=== PATIENT | female | born 1970 | race Caucasian/White ===

== ENCOUNTER → 2023-06-15 11:02 | Outpatient (REF) | payer BC, SELFPAY | LOC: WDC 11:02 | PROVIDERS: ATTENDING PHYSICIAN Obstetrics & Gynecology | DX: Z12.31 Encounter for screening mammogram for malignant neoplasm of breast (principal) | CPT/HCPCS: 77063; 77067 ==

== ENCOUNTER → 2023-07-23 17:58 | Outpatient (REF) | payer BC, SELFPAY | LOC: MRI 17:58 | PROVIDERS: ATTENDING PHYSICIAN Specialist; FAMILY PHYSICIAN Physician Assistant | DX: D35.2 Benign neoplasm of pituitary gland (principal) | CPT/HCPCS: 70553; A9575 ==

== ENCOUNTER → 2024-01-27 07:49 | Outpatient (REF) | payer BC, SELFPAY | LOC: MRI 3T 07:49 | PROVIDERS: ATTENDING PHYSICIAN Family Medicine | DX: M54.12 Radiculopathy, cervical region (principal); M48.02 Spinal stenosis, cervical region; M50.30 Other cervical disc degeneration, unspecified cervical region | CPT/HCPCS: 72141 ==

== ENCOUNTER → 2024-01-28 13:52 | Outpatient (REF) | payer BC, SELFPAY | LOC: RAD 13:52 | PROVIDERS: ATTENDING PHYSICIAN Nurse Practitioner Adult Health | DX: R22.1 Localized swelling, mass and lump, neck (principal); K11.21 Acute sialoadenitis | CPT/HCPCS: 76536 ==

== ENCOUNTER → 2024-06-21 08:55 | Outpatient (REF) | payer BC, SELFPAY | LOC: WDC 08:55 | PROVIDERS: ATTENDING PHYSICIAN Obstetrics & Gynecology; FAMILY PHYSICIAN Nurse Practitioner Family | DX: Z12.31 Encounter for screening mammogram for malignant neoplasm of breast (principal) | CPT/HCPCS: 77063; 77067 ==

== ENCOUNTER 2024-10-31 06:28 | Emergency (ER) | payer BC, SELFPAY ==
[2024-10-31 06:29] VITALS: BP 145/92
--- NOTE | 2024-10-31 08:46 | ED.GENMED ---
History of Present Illness
General
Chief Complaint: Headache
Source: patient
Exam Limitations: none
Time Seen by Provider: 10/31/24 08:28
Nursing documentation reviewed up to this point in time: agreed with
History of Present Illness
History of Present Illness:
pt is a 54 y/o F
h/o migraines
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
h/o pituitary adenoma
here with headache x 4 days
gradual onset
waxing and waning
mostly top of head sometimes into neck on both sides
changing position makes it worse
no recent ilnless, fever, chills, vomiting, ocnfusion, weakness, numbness
no trauma
tried propranolol which is her preventative
then has been using rizatriptan and diclofenac
nothing tkaen today
says pain is 10/10
didn't sleep last nigth
no photophobia;
Phy Exam
Physical Exam
Physical Exam:
GENERAL: Alert , in no apparent distress, very well appearing
HEAD: NCAT
EYE: pupils equal and reactive, no nystagmus, no photophobia, sitting in bright light comfortably
NECK: Supple,full rom, nontender
ENT: o/p clr, mmm.
CARDIAC: Regular rate and rhythm . no edema
LUNGS: Clear breath sounds bilaterally, no acute respiratory distress, no wheezes/rales/rhonchi
ABDOMEN: Soft, without focal tenderness, no r/g, no cvat
NEUROLOGICAL: Alert and orientedx 4, cn intact, no facial asymmetry, 5/5 strength in UE/LE, sensation intact, romberg neg, ambulates without assistance, neg pronator drift
SKIN: Warm and dry, skin intact.
MUSCULOSKELETAL: No edema, well perfused.
PSYCH: Normal and appropriate interaction.
Course
Orders/Labs/Results
Orders:
Orders
10/31/24 08:38
CT Head W/o Iv Contrast Urgent
Comment:
Reason For Exam: headache x 4 days
0.9% Sodium Chloride 1000 ml [Nss] 1,500 ml IV BOLUS
Diphenhydramine [Benadryl] 50 mg IV NOW STA
Ketorolac [Toradol] 30 mg IV NOW STA
Metoclopramide [Reglan] 10 mg IV NOW STA
10/31/24 09:17
Complete Blood Count/With Diff Urgent
Comprehensive Metabolic Panel Urgent
Abnormal Lab Results
10/31/24
09:17
Absolute Lymphs (auto) 0.9 L 10^3/uL
(1.2-3.4)
Immature Gran % 0.6 H %
(0-0.5)
Neutrophils % 78.7 H %
(42.2-75.2)
Lymphocytes % 12.2 L %
(20.5-51.1)
Sodium 133 L mmol/L
(135-145)
Carbon Dioxide 20 L mmol/L
(22-30)
Glucose 111 H mg/dl
(70-99)
Total Bilirubin 1.5 H mg/dl
(0.2-1.3)
AST 43 H U/L
(14-36)
ALT 45 H U/L
(0-35)
10/31/24 09:17
10/31/24 09:17
Vital Signs
Initial and Last Documented VS:
Initial Vital Signs
Temp Pulse Resp BP Pulse Ox
36.3 C 76 20 145/92 98
10/31/24 06:29 10/31/24 06:29 10/31/24 06:29 10/31/24 06:29 10/31/24 06:29
Last Documented Vital Signs
Temp Pulse Resp BP Pulse Ox
36.3 C 76 20 145/92 98
10/31/24 06:29 10/31/24 06:29 10/31/24 06:29 10/31/24 06:29 10/31/24 08:49
MDM/Problems Addressed
Differential Diagnosis Includes:
MIGRAINE, TENSION HEADACHE, VIRAL SYNDROME
MDM/Problems Addressed:
54 y/o F
h/o migraines
4 days waxing waning headache
gradual onset
no red flag syptoms
tried her tryptan and diclofenac
says 02/02 pain now
well appearing
neuro intact
has not had neuroimaging in a long time
ct neg
syptoms resolved with migraine meds
d/c home.
aware o fmild elev lfts; could be viral
reocmend f/u
no abd pain
*Pulse Oximetry
SaO2: 98
Oxygen Mode of Delivery: Room air
Patient hypoxic: no (98)
*Critical Care Note
Total Time (30-74mins, 75-104mins- exclusive of procedures): Not Applicable
ED Attending Note
-
Portions of this chart may have been created with voice recognition software.� Occasional wrong word or��sound alike� substitutions may have occurred due to the inherent limitations of voice recognition software.
Discharge Plan
Departure
Patient Disposition: Home (Routine Discharge)
Date of Disposition: 10/31/24
Time of Disposition: 10:41
Patient with high blood pressure during this ER visit?: Yes
Condition: Fair
Covid-19: Not Applicable
Discharge Problem:
Headache
Instructions: Headache, Adult (DC)
Referrals:
Leesa Nravaez CRNP [Family Provider, Internal Medicine] - Follow up in 5-7 days
Activity Restrictions/Additional Instructions:
YOU WERE GIVEN A MIGRAINE COCKTAIL FOR YOUR HEADACHE
YOU CAN CONTINUE THE DICLOFENAC PRESCRIBED
DRINK FLUIDS
STAY HYDRATED
YOUR LIVER ENZYMES WERE MINIMALLY ELEVATED, CAN HAPPEN WITH VIRAL INFNECTIONS
MAKE SURE TO HAVE THESE TRENDED IN A FEW WEEKS
RETURN FOR ANY CONCENRS: SEVERE SUDDEN WORST HEADACHE OF LIFE, REPEATED VOMITING, WEAKNESS/NUMBNESS OR ANY CONCENRS
Interventions
Interventions:
*Risk Screen - Suicide Last Done: 10/31/24 06:29
*Neglect/Abuse Screening Last Done: 10/31/24 06:29
Discharge Date and Time
Print Language: LATVIAN
[2024-10-31 09:35] LABS: Hematocrit 38.8 % (37.0-47.0); Hemoglobin 13.7 g/dL (12.0-16.0); Mean Corp Hgb Conc. 35.3 g/dL (33.0-37.0); Mean Corpuscular Volume 86.0 fL (81.0-99.0); Nucleated Red Blood Cells % 0 %; Platelet Count 182 10^3/uL (130-400); Red Cell Dist. Width 13.2 % (11.5-14.5)
[2024-10-31] MEDS: NSS 1500 IV (09:35)
[2024-10-31] MEDS: REGLAN 10 MG IV (09:36)
[2024-10-31] MEDS: TORADOL 30 MG IV (09:36)
[2024-10-31] MEDS: BENADRYL 50 MG IV (09:37)
[2024-10-31 09:41] VITALS: BMI 31.8
[2024-10-31 10:09] LABS: ALT (SGPT) 45 U/L (0-35); AST (SGOT) 43 U/L (14-36); Albumin 4.0 g/dl (3.5-5.0); Alkaline Phosphatase 83 U/L (38-126); Blood Urea Nitrogen 10 mg/dl (7-17); Calcium 8.9 mg/dl (8.4-10.2); Carbon Dioxide 20 mmol/L (22-30); Chloride 104 mmol/L (98-107); Estimated Creatinine Clearance 99 ml/min; Glucose 111 mg/dl (70-99); Potassium 4.0 mmol/L (3.5-5.1); Sodium 133 mmol/L (135-145); Total Protein 6.7 g/dl (6.3-8.2); eGFR > 60.00
== END 2024-10-31 11:19 | disposition home or self-care (01) ==
LOC: EMR 06:28
PROVIDERS: Physician Assistant; EMERGENCY PHYSICIAN Emergency Medicine; FAMILY PHYSICIAN Nurse Practitioner Family
DX: R51.9 Headache, unspecified (principal); Z86.018 Personal history of other benign neoplasm
CPT/HCPCS: 99284; 96374; 96375; 96361; 70450; 80053; 85025